=== PATIENT | female | born 1990 | race American Indian/Alaskan Native ===

== ENCOUNTER 2016-09-21 14:19 | Emergency (ER) | payer OTHER ==
--- NOTE | 2016-09-21 17:23 | Emergency Department Report ---
ED Abdominal Pain HPI - General Chief Complaint: Chest Pain Stated Complaint: CHEST PAIN/DIZZY Time Seen by Provider: 09/21/16 16:58 Source: patient Mode of arrival: Ambulatory Limitations: No Limitations - History of Present Illness Initial Comments: 26-year-old PMH epigastric pain presents with complaint of brief episode where she felt slightly lightheaded last night while making dinner. Denies any loss of consciousness no nausea no vomiting no chest pain or shortness of breath no diaphoresis no urinary symptoms no urinary frequency no dysuria. On exam patient is awake alert and oriented 3 not in acute distress sitting quietly and comfortably in the room states that she occasionally experiences epigastric pain. States she is moving her bowels and passing gas normally. States she has seen a care manager in the past for epigastric pain. pt denies any loss of consciousness, no upper or lower extremity paresthesias. Patient denies any pleuritic chest pain no history of DVT or PE not on any form of control no recent surgeries. MD Complaint: abdominal pain Onset/Timin -: days(s) Location: RUQ, epigastric Severity: mild Severity scale (0 -10): 3 Quality: aching Consistency: now resolved Worsens With: nothing Associated Symptoms: nausea - Related Data Previous Rx's Medication Instructions Recorded Last Taken Type Ondansetron [Zofran Odt] 4 mg PO Q8H PRN #12 tab.rapdis 09/21/16 Unknown Rx Allergies Allergy/AdvReac Type Severity Reaction Status Date / Time No Known Allergies Allergy Unverified 09/21/16 15:11 ED Review of Systems ROS: Stated complaint: CHEST PAIN/DIZZY Other details as noted in HPI Constitutional: denies: chills, fever Eyes: denies: eye pain, eye discharge, vision change ENT: denies: ear pain, throat pain Respiratory: denies: cough, shortness of breath, wheezing Cardiovascular: denies: chest pain, palpitations Endocrine: no symptoms reported Gastrointestinal: nausea. denies: abdominal pain, diarrhea Genitourinary: denies: urgency, dysuria, discharge Musculoskeletal: denies: back pain, joint swelling, arthralgia Skin: denies: rash, lesions Neurological: denies: headache, weakness, paresthesias Psychiatric: denies: anxiety, depression Hematological/Lymphatic: denies: easy bleeding, easy bruising ED Past Medical Hx - Past Medical History Previous Medical History?: No - Surgical History Past Surgical History?: No - Social History Smoking Status: Never Smoker Substance Use Type: None - Medications Home Medications: Home Medications Medication Instructions Recorded Confirmed Last Taken Type Ondansetron [Zofran Odt] 4 mg PO Q8H PRN #12 tab.mark 09/21/16 Unknown Rx ED Physical Exam - General Limitations: No Limitations General appearance: alert, in no apparent distress - Head Head exam: Present: atraumatic, normocephalic - Eye Eye exam: Present: normal appearance, PERRL, EOMI - ENT ENT exam: Present: mucous membranes moist - Neck Neck exam: Present: normal inspection - Respiratory Respiratory exam: Present: normal lung sounds bilaterally. Absent: respiratory distress - Cardiovascular Cardiovascular Exam: Present: regular rate, normal rhythm. Absent: systolic murmur, diastolic murmur, rubs, gallop - GI/Abdominal GI/Abdominal exam: Present: soft, normal bowel sounds - Extremities Exam Extremities exam: Present: normal inspection - Back Exam Back exam: Present: normal inspection - Neurological Exam Neurological exam: Present: alert, oriented X3, CN II-XII intact, normal gait - Psychiatric Psychiatric exam: Present: normal affect, normal mood - Skin Skin exam: Present: warm, dry, intact, normal color. Absent: rash ED Course Vital Signs 09/21/16 15:07 Temperature 99.6 F Pulse Rate 73 Respiratory 18 Rate Blood Pressure 110/55 O2 Sat by Pulse 100 Oximetry ED Medical Decision Making - Lab Data Result diagrams: 09/21/16 17:23 09/21/16 17:23 - Medical Decision Making A/P: Mild right upper quadrant pain possible biliary colic 1-she states she had mild lightheadedness during episode of right upper quadrant pain last night. Pain is now essentially resolved minimal to no tenderness in abdomen right upper quadrant right lower quadrant no pelvic pain no reports of vaginal discharge. 2-EKG troponin abdominal labs amylase lipase and LFTs within normal limits CBC within normal limits the MP within normal limits 3-I provided patient outpatient referral to gastroenterology advised her to return to the ED if she experiences any severe nausea vomiting fevers chills abnormal bowel movements or loss of bowel movements and inability to pass gas. Patient has no current clinical symptoms of incarcerated hernia on exam of abdomen 4-I advised patient that if right upper quadrant pain returns or persists that she may require imaging but is not indicated at this time as her pain is resolved and her LFTs are within normal limits 5- advised patient to increase her fluid intake as her CK is very likely elevated. Patient does not appear dehydrated clinically, patient stated she understood these instructions. 6- HEART Score 0 points Low Score (0-3 points) Risk of MACE of 0.9-1.7%. Wells Score PE 0.0 points Low risk group: 1.3% chance of PE in an ED population. Another study assigned scores 4 as PE Unlikely and had a 3% incidence of PE. Critical care attestation.: If time is entered above; I have spent that time in minutes in the direct care of this critically ill patient, excluding procedure time. ED Disposition Clinical Impression: Right upper quadrant pain Disposition: DISCHARGED TO HOME OR SELFCARE Is pt being admited?: No Does the pt Need Aspirin: No Condition: Stable Instructions: Abdominal Pain (ED), Dehydration (ED) Prescriptions: Ondansetron [Zofran Odt] 4 mg PO Q8H PRN #12 tab.rapdis PRN Reason: Nausea Referrals: [facility] [Provider Group] - 3-5 Days DEVIN MARTINEZ MD [Staff Physician] - 3-5 Days [facility] [Provider Group] - 3-5 Days Forms: Work/School Release Form(ED) Time of Disposition: 19:26
[2016-09-21 17:56] LABS: Creatine Kinase MB 1.1 ng/mL (0.0-4.0)
[2016-09-21 17:57] LABS: Alanine Aminotransferase 13 units/L (7-56); Albumin 4.1 g/dL (3.9-5); Albumin/Globulin Ratio 1.3 %; Alkaline Phosphatase 66 units/L (35-129); Anion Gap 16 mmol/L; Bilirubin,Total 0.3 mg/dL (0.1-1.2); Blood Urea Nitrogen 12 mg/dL (7-17); Carbon Dioxide 23 mmol/L (22-30); Chloride 101.8 mmol/L (98-107); Glucose 83 mg/dL (65-100); Potassium 3.9 mmol/L (3.6-5.0); Sodium 137 mmol/L (137-145); Total Protein 7.3 g/dL (6.3-8.2)
[2016-09-21 18:02] LABS: Bilirubin,Direct < 0.2 mg/dL (0-0.2); Bilirubin,Indirect 0.1 mg/dL
[2016-09-21 18:08] LABS: Basophils % (Auto) 0.7 % (0.0-1.8); Eosinophils % (Auto) 0.7 % (0.0-4.3); Hematocrit 36.5 % (30.3-42.9); Hemoglobin 11.5 gm/dl (10.1-14.3); Mean Corpuscular HGB Conc 32 % (30-34); Mean Corpuscular Hemoglobin 27 pg (28-32); Mean Corpuscular Volume 84 fl (79-97); Platelet Count 283 K/mm3 (140-440); Red Blood Count 4.32 M/mm3 (3.65-5.03); Red Cell Distribution Width 13.2 % (13.2-15.2); White Blood Count 7.8 K/mm3 (4.5-11.0)
[2016-09-21 18:10] LABS: Bilirubin,Urine NEG (Negative); Blood,Urine NEG (Negative); Ketones,Urine NEG (Negative); Leukocyte Esterase,Urine NEG (Negative); Mucus,Urine 3+ /HPF; Nitrite,Urine NEG (Negative); Protein,Urine <15 mg/dL mg/dL (Negative); Urobilinogen,Urine < 2.0 mg/dL (<2.0)
[2016-09-21 19:53] VITALS: BP 104/66
== END 2016-09-21 19:53 | disposition home or self-care (01) ==
LOC: ED 14:19
DX: R10.11 Right upper quadrant pain (principal)
CPT/HCPCS: 36415; 80048; 80074; 81001; 81025; 82150; 82550; 82553; 83690; 84484; 85025; 87086; 93005; 93010; 99283

== ENCOUNTER 2019-01-24 11:08 | Emergency (ER) | payer BC, OTHER ==
--- NOTE | 2019-01-24 11:16 | Emergency Department Report ---
Blank Doc - Documentation Documentation: This is a 28-year-old female that presents with pelvic pain with radiation to back and epigastric area. Denies any vomiting. Stated is intermittent but denies any pain right now. This initial assessment/diagnostic orders/clinical plan/treatment(s) is/are subject to change based on patient's health status, clinical progression and re- assessment by fellow clinical providers in the ED. Further treatment and workup at subsequent clinical providers discretion. Patient/guardians urged not to elope from the ED as their condition may be serious if not clinically assessed and managed. Initial orders include: 1- Patient sent to [facility] for further evaluation and treatment 2- UA/ test
[2019-01-24 11:18] VITALS: BP 117/68
[2019-01-24 12:07] LABS: Bilirubin,Urine NEG (Negative); Blood,Urine NEG (Negative); Color,Urine Yellow (Yellow); Mucus,Urine 3+ /HPF; Protein,Urine <15 mg/dL mg/dL (Negative)
--- NOTE | 2019-01-24 13:13 | XRay Report ---
ABDOMEN 1 VIEW(S) INDICATION / CLINICAL INFORMATION: lower abd pain. COMPARISON: None available. FINDINGS: TUBES / LINES: None. BOWEL GAS PATTERN: Constipation is noted. FREE AIR / EXTRALUMINAL GAS: None seen. ADDITIONAL FINDINGS: No significant additional findings. IMPRESSION: 1. Constipation. Signer Name: Mariano Thomas MD Signed: 01/24/2019 1:08 PM Workstation Name: [employer]
[2019-01-24] MEDS ORDERED: ROCEPHIN IM ONE (14:10)
[2019-01-24] MEDS ORDERED: XYLOCAINE 1% MPF 5 mL INFILTRATI ONE (14:10)
[2019-01-24] MEDS ORDERED: FLAGYL PO ONE (14:10)
[2019-01-24] MEDS ORDERED: ZITHROMAX PO ONE (14:10)
--- NOTE | 2019-01-24 14:25 | Emergency Department Report ---
ED Abdominal Pain HPI - General Chief Complaint: Abdominal Pain Stated Complaint: ABD PAIN Time Seen by Provider: 01/24/19 11:15 Source: patient Mode of arrival: Ambulatory Limitations: No Limitations - History of Present Illness Initial Comments: Patient is a 28-year-old female who is here for abdominal pain for the last 5 days. Patient states is intermittent and crampy in nature. Patient states that sometimes she feels the pain radiates to the epigastrium as well. Denies nausea vomiting diarrhea fevers or chills. Patient states there is no dysuria but she does have some mild urinary frequency. Patient denies abnormal bleeding or vaginal discharge. - Related Data Previous Rx's Medication Instructions Recorded Last Taken Type Ondansetron [Zofran Odt] 4 mg PO Q8H PRN #12 tab.rapdis 09/21/16 Unknown Rx Ibuprofen [Motrin 600 MG tab] 600 mg PO Q8H PRN #20 tablet 01/24/19 Unknown Rx Allergies Allergy/AdvReac Type Severity Reaction Status Date / Time No Known Allergies Allergy Unverified 09/21/16 15:11 ED Review of Systems ROS: Stated complaint: ABD PAIN Other details as noted in HPI Comment: All other systems reviewed and negative ED Past Medical Hx - Past Medical History Previous Medical History?: No - Surgical History Past Surgical History?: No - Social History Smoking Status: Never Smoker Substance Use Type: Alcohol - Medications Home Medications: Home Medications Medication Instructions Recorded Confirmed Last Taken Type Ondansetron [Zofran Odt] 4 mg PO Q8H PRN #12 tab.rapdis 09/21/16 Unknown Rx Ibuprofen [Motrin 600 MG tab] 600 mg PO Q8H PRN #20 tablet 01/24/19 Unknown Rx ED Physical Exam - General Limitations: No Limitations General appearance: alert, in no apparent distress - Head Head exam: Present: atraumatic, normocephalic - Eye Eye exam: Present: normal appearance - ENT ENT exam: Present: mucous membranes moist - Neck Neck exam: Present: normal inspection - Respiratory Respiratory exam: Present: normal lung sounds bilaterally. Absent: respiratory distress, wheezes, rales, rhonchi - Cardiovascular Cardiovascular Exam: Present: regular rate, normal rhythm. Absent: systolic murmur, diastolic murmur, rubs, gallop - GI/Abdominal GI/Abdominal exam: Present: soft, normal bowel sounds. Absent: distended, tenderness, guarding, rebound, rigid - Extremities Exam Extremities exam: Present: normal inspection - Back Exam Back exam: Present: normal inspection - Neurological Exam Neurological exam: Present: alert, oriented X3 - Psychiatric Psychiatric exam: Present: normal affect, normal mood - Skin Skin exam: Present: warm, dry, intact, normal color. Absent: rash ED Course Vital Signs 01/24/19 11:15 Temperature 98.9 F Pulse Rate 83 Respiratory 18 Rate Blood Pressure 117/68 O2 Sat by Pulse 100 Oximetry ED Medical Decision Making - Lab Data Lab Results 01/24/19 01/24/19 Range/Units 11:25 11:40 HCG, Qual Negative (Negative) Urine Color Yellow (Yellow) Urine Turbidity Slightly-cloudy (Clear) Urine pH 6.0 (5.0-7.0) Ur Specific [place] 1.028 (1.003-1.030) Urine Protein <15 mg/dl (Negative) mg/dL Urine Glucose (UA) Neg (Negative) mg/dL Urine Ketones Neg (Negative) mg/dL Urine Blood Neg (Negative) Urine Nitrite Neg (Negative) Urine Bilirubin Neg (Negative) Urine Urobilinogen 2.0 (<2.0) mg/dL Ur Leukocyte Esterase Neg (Negative) Urine WBC (Auto) 2.0 (0.0-6.0) /HPF Urine RBC (Auto) 6.0 (0.0-6.0) /HPF U Epithel Cells (Auto) 9.0 (0-13.0) /HPF Urine Mucus 3+ /HPF - Medical Decision Making Patient's urinalysis was within normal limits. Patient was not . Once we had the normal urinalysis patient was given a pelvic exam. Pelvic exam done by RIDGE was riding. Exam does show that the patient does have a thick white vaginal discharge. There is no cervical motion tenderness and adnexal tenderness. Wet prep was sent which does show clue cells as well as multiple polymorphonuclear cells. Patient has a gonorrhea and Chlamydia cultures sent to the lab. Patient was given Rocephin and azithromycin as well as Flagyl the patient be discharged home. Critical care attestation.: If time is entered above; I have spent that time in minutes in the direct care of this critically ill patient, excluding procedure time. ED Disposition Clinical Impression: Cervicitis Disposition: DC-01 TO HOME OR SELFCARE Is pt being admited?: No Does the pt Need Aspirin: No Condition: Stable Instructions: Abdominal Pain (ED), Cervicitis (ED) Referrals: PRIMARY CARE, [Primary Care Provider] - 3-5 Days Time of Disposition: 14:24
== END 2019-01-24 14:38 | disposition home or self-care (01) ==
LOC: ED 11:08
DX: N72 Inflammatory disease of cervix uteri (principal)
CPT/HCPCS: 36415; 74018; 81001; 84703; 87210; 87591; 96372; 99284; J0696